=== PATIENT | female | born 1995 | race American Indian/Alaskan Native ===

== ENCOUNTER 2017-01-27 19:50 | Emergency (ER) | payer SELFPAY ==
[2017-01-27 20:53] VITALS: BP 118/63
[2017-01-28] MEDS ORDERED: FUL-GLO OP ONE (02:02)
--- NOTE | 2017-01-28 02:10 | Emergency Department Report ---
[facility] Chief Complaint: Eye Problems Stated Complaint: LEFT EYE PAIN ED Review of Systems ROS: Stated complaint: LEFT EYE PAIN Other details as noted in HPI ED Past Medical Hx - Past Medical History Previous Medical History?: No - Surgical History Past Surgical History?: No - Social History Smoking Status: Current Some Day Smoker Substance Use Type: None - Medications Home Medications: Home Medications Medication Instructions Recorded Confirmed Last Taken Type Cyclobenzaprine [Flexeril] 10 mg PO TID PRN #15 tablet 12/08/15 Unknown Rx Ibuprofen [Motrin 800 MG tab] 800 mg PO Q8HR PRN #30 tablet 12/08/15 Unknown Rx Omeprazole Magnesium [PriLOSEC Otc] 20 mg PO BID #20 tab 05/21/16 Unknown Rx Ondansetron [Zofran Odt] 4 mg PO Q4H PRN #7 tab.rapdis 05/21/16 Unknown Rx traMADol [Ultram 50 MG tab] 50 mg PO Q6HR PRN #10 tablet 05/21/16 Unknown Rx [facility] Exam - Exam General: Vital signs noted. No distress. Alert and acting appropriately. ED Course Vital Signs 01/27/17 20:50 Temperature 98.4 F Pulse Rate 93 H Respiratory 18 Rate Blood Pressure 118/63 O2 Sat by Pulse 100 Oximetry Critical care attestation.: If time is entered above; I have spent that time in minutes in the direct care of this critically ill patient, excluding procedure time. ED Disposition Condition: Stable Referrals: PRIMARY CARE [Primary Care Provider] - 3-5 Days
== END 2017-01-28 03:42 | disposition home or self-care (01) ==
LOC: ED 19:50
DX: H57.12 Ocular pain, left eye (principal); F17.210 Nicotine dependence, cigarettes, uncomplicated
CPT/HCPCS: 99282

== ENCOUNTER 2017-03-19 13:29 | Emergency (ER) | payer SELFPAY ==
[2017-03-19 14:51] VITALS: BP 117/82
[2017-03-19 15:57] LABS: Bilirubin,Urine NEG (Negative); Blood,Urine NEG (Negative); Ketones,Urine NEG (Negative); Leukocyte Esterase,Urine NEG (Negative); Nitrite,Urine NEG (Negative); Protein,Urine <15 mg/dL mg/dL (Negative); WBC,Urine < 1.0 /HPF (0.0-6.0)
[2017-03-19 16:08] LABS: Basophils % (Auto) 0.8 % (0.0-1.8); Eosinophils % (Auto) 0.8 % (0.0-4.3); Hematocrit 34.5 % (30.3-42.9); Hemoglobin 11.2 gm/dl (10.1-14.3); Mean Corpuscular HGB Conc 32 % (30-34); Mean Corpuscular Volume 71 fl (79-97); Platelet Count 261 K/mm3 (140-440); Red Blood Count 4.86 M/mm3 (3.65-5.03); Red Cell Distribution Width 18.8 % (13.2-15.2); White Blood Count 8.5 K/mm3 (4.5-11.0)
[2017-03-19 16:16] LABS: Mean Corpuscular Hemoglobin 23 pg (28-32)
[2017-03-19 16:24] LABS: Alanine Aminotransferase 12 units/L (7-56); Albumin 4.5 g/dL (3.9-5); Albumin/Globulin Ratio 1.3 %; Alkaline Phosphatase 117 units/L (35-129); Anion Gap 17 mmol/L; BUN/Creatinine Ratio 14; Blood Urea Nitrogen 7 mg/dL (7-17); Calcium 9.5 mg/dL (8.4-10.2); Carbon Dioxide 24 mmol/L (22-30); Chloride 102.7 mmol/L (98-107); Glucose 96 mg/dL (65-100); Lipase 25 units/L (13-60); Potassium 4.3 mmol/L (3.6-5.0); Sodium 139 mmol/L (137-145); Total Protein 7.9 g/dL (6.3-8.2)
== END 2017-03-19 18:09 | disposition left against medical advice (07) ==
LOC: ED 13:29
DX: R10.9 Unspecified abdominal pain (principal); Z53.21 Procedure and treatment not carried out due to patient leaving prior to being seen by health care provider
CPT/HCPCS: 36415; 80053; 81001; 81025; 83690; 85025

== ENCOUNTER 2017-06-28 23:27 | Emergency (ER) | payer SELFPAY ==
[2017-06-28 23:37] VITALS: BP 124/71
[2017-06-29] MEDS ORDERED: TORADOL ONE (02:02)
[2017-06-29] MEDS ORDERED: TORADOL IM ONE (02:02)
--- NOTE | 2017-06-29 02:03 | Emergency Department Report ---
ED Back Pain/Injury HPI - General Chief Complaint: Fall Stated Complaint: BACK PAIN Source: patient Mode of arrival: Ambulatory Limitations: No Limitations - History of Present Illness Initial Comments: This is a 22 y.o. female that presents with low back pain for 2 days. Patient reports falling down 4 stairs at home. States pain is in low back and non- radiating. States it is worse while sitting, walking, and coughing. Pain is 8/ 10 on pain scale and. She is also having pain in right thumb. She tried to catch herself as she landed to the floor. She took tramadol from another visit, it caused her to vomit. She took advil pm last night but symptoms returned when she woke up this morning.Denies LOC, hitting head, numbness/tingling, swelling, bruising, and visual changes. MD Complaint: back pain -: days(s) (2) Similar Symptoms Previously: No Place: home Radiation: none Severity: severe Severity scale (0 -10): 8 Quality: sharp, aching Consistency: intermittent Improves With: none Worsens With: movement, supine, sitting upright, walking, deep breaths/cough Context: fall (fell down the stairs 4 days ago at home) Associated Symptoms: difficulty walking (pain with walking), other (right thumb pain ). denies: confusion, weakness, chest pain, cough, difficulty urinating, diaphoresis, incontinence, fever/chills, constipation, headaches, abdominal pain , loss of appetite, malaise, nausea/vomiting, rash, seizure, shortness of breath , syncope Treatments Prior to Arrival: NSAIDS, prescription analgesics (tramadol) - Related Data Previous Rx's Medication Instructions Recorded Last Taken Type Cyclobenzaprine [Flexeril] 10 mg PO TID PRN #15 tablet 12/08/15 Unknown Rx Ibuprofen [Motrin 800 MG tab] 800 mg PO Q8HR PRN #30 tablet 12/08/15 Unknown Rx Omeprazole Magnesium [PriLOSEC Otc] 20 mg PO BID #20 tab 05/21/16 Unknown Rx Ondansetron [Zofran Odt] 4 mg PO Q4H PRN #7 tab.rapdis 05/21/16 Unknown Rx traMADol [Ultram 50 MG tab] 50 mg PO Q6HR PRN #10 tablet 05/21/16 Unknown Rx Tobramycin/Dexameth 0.3-0.1% 1 drops OS QID #1 bottle 01/28/17 Unknown Rx [Tobradex] Cyclobenzaprine HCl [Flexeril 5 MG 5 mg PO TID PRN #24 tab 06/29/17 Unknown Rx TAB] Diclofenac Sodium 75 mg PO Q6H PRN #20 tablet. 06/29/17 Unknown Rx Allergies Allergy/AdvReac Type Severity Reaction Status Date / Time cheese Allergy Vomiting Verified 06/29/17 01:03 tramadol Allergy Vomiting Verified 06/29/17 01:03 ED Review of Systems ROS: Stated complaint: BACK PAIN Other details as noted in HPI Constitutional: denies: chills, fever Respiratory: denies: cough, shortness of breath, wheezing Cardiovascular: denies: chest pain, palpitations Gastrointestinal: denies: abdominal pain, nausea, diarrhea Musculoskeletal: back pain (low back pain), arthralgia (right thumb pain). denies: joint swelling Skin: denies: rash, lesions Neurological: abnormal gait (limping due to low back pain). denies: headache, weakness, numbness, paresthesias ED Back Pain Physical Exam - Exam General: Vital signs noted. No distress. Alert and acting appropriately. Back/Abdomen: Yes Sacroiliac Tenderness (bilateral), No Abdominal Tenderness, No Perithoracic Tenderness, No Flank Tenderness, No Straight Leg Raise Pain Neuro: Yes Normal Sensation, Yes Normal DTR's, No Motor Weakness, No Normal Gait ED Course Vital Signs 06/28/17 23:32 Temperature 98.3 F Pulse Rate 101 H Respiratory 18 Rate Blood Pressure 124/71 O2 Sat by Pulse 100 Oximetry Ed Back Pain Tests - Tests Tests: Normal UA, Normal X Rays (no acute injury) ED Medical Decision Making - Radiology Data Radiology results: report reviewed Xray of right hand: IMPRESSION: Within normal limits Xray of L-spine: no acute injury. - Medical Decision Making This is a 22 y.o. female presents with low back pain and right thumb pain from fall for 2 days. Patient is stable and examined by me. Xray of L-Spine and right hand obtained and normal exam. UA and HCG normal. Mild distress noted. Given toradol 30 mg IM once in ER. Discussed plan to start diclofenac 50 mg po q6h PRN and cylobenzaprine 5 mg po tid with patient. Patient agrees to ED plan of care. Discharged home for outpatient management. Follow up with PCP in 3 days. Critical care attestation.: If time is entered above; I have spent that time in minutes in the direct care of this critically ill patient, excluding procedure time. ED Disposition Clinical Impression: Strain of muscle, fascia and tendon of lower back, initial encounter, Pain of right thumb, Strain of extensor muscle, fascia and tendon of right thumb at wrist and hand level, initial encounter Low back pain Qualifiers: Chronicity: acute Back pain laterality: bilateral Sciatica presence: without sciatica Qualified Code(s): M54.5 - Low back pain Disposition: TO HOME OR SELFCARE Is pt being admited?: No Does the pt Need Aspirin: No Condition: Stable Instructions: Muscle Strain (ED), Core Strengthening Exercises (GEN) Additional Instructions: Rest Use ice or heat on affected area for 20 minutes and off for 2 hours. Take pain medication as needed for pain. Don't drive or operate heavy machinery while taking muscle relaxers because they may cause drowsiness. Follow up with Primary Care Provider 2-3 days. Prescriptions: Cyclobenzaprine HCl [Flexeril 5 MG TAB] 5 mg PO TID PRN #24 tab PRN Reason: Muscle Spasm Diclofenac Sodium 75 mg PO Q6H PRN #20 tablet.dr HAJI Reason: Pain Forms: Work/School Release Form(ED) Time of Disposition: 04:28 Print Language: MALTESE
[2017-06-29 02:19] LABS: Bilirubin,Urine NEG (Negative); Blood,Urine NEG (Negative); Calcium Oxalate Crystals,Urine 3+; Color,Urine Yellow (Yellow); Mucus,Urine FEW /HPF; Protein,Urine <15 mg/dL mg/dL (Negative)
[2017-06-29 02:31] LABS: HCG Qualitative,Urine Negative (Negative)
--- NOTE | 2017-06-29 03:17 | XRay Report ---
FINAL REPORT EXAM: XR SPINE LUMBOSACRAL 2-3V HISTORY: low back pain from fall TECHNIQUE: Three views of the lumbar spine were submitted. FINDINGS: There is a mild dextroscoliosis of the thoracolumbar junction. The disc heights and alignment appear normal. There is no evidence of fracture. The SI joints appear normal. The soft tissues well maintained IMPRESSION: No acute injury.
--- NOTE | 2017-06-29 03:17 | XRay Report ---
FINAL REPORT EXAM: XR HAND 3+V RT HISTORY: pain and swelling R hand s/p fall TECHNIQUE: Three views of the right hand were obtained. FINDINGS: There is no evidence of acute fracture or soft tissue injury. The wrist joint appears well maintained. IMPRESSION: Within normal limits
== END 2017-06-29 04:30 | disposition home or self-care (01) ==
LOC: ED 23:27
DX: S39.012A Strain of muscle, fascia and tendon of lower back, initial encounter (principal); S56.311A Strain of extensor or abductor muscles, fascia and tendons of right thumb at forearm level, initial encounter; R26.2 Difficulty in walking, not elsewhere classified; W10.9XXA Fall (on) (from) unspecified stairs and steps, initial encounter; Y93.89 Activity, other specified; Y99.8 Other external cause status; Y92.009 Unspecified place in unspecified non-institutional (private) residence as the place of occurrence of the external cause
CPT/HCPCS: 72100; 73130; 81001; 81025; 96372; 99284; J1885